=== PATIENT | male | born 1970 | race Caucasian/White ===

== ENCOUNTER 2017-12-15 23:37 | Emergency (ER) | payer OTHER ==
[2017-12-15 23:49] VITALS: BP 131/88; PULSE 72; TEMP 98.1; BMI 30.5
[2017-12-15] MEDS ORDERED: CIPROFLOXACIN 500 MG TABLET (RESTRICTED TO ID) PO ONE (23:56)
[2017-12-15] MEDS ORDERED: predniSONE 20 MG TABLET (UD) PO ONE (23:57)
[2017-12-15] MEDS ORDERED: predniSONE 20 MG TABLET (UD) ONE (23:59)
[2017-12-15] MEDS ORDERED: CIPROFLOXACIN 250 MG TABLET (RESTRICTED TO ID) PO ONE (23:59)
--- NOTE | 2017-12-16 00:01 | PDOC ---
History of Present Illness - General Chief Complaint: Edema Stated Complaint: LIP SWELLING History Source: Patient Exam Limitations: No Limitations - History of Present Illness Initial Comments: 12/15/17 23:57 This is a 47-year-old male comes in complaining of discomfort in his lower lip. Patient was started on Bactrim approximately 7 days ago for prostatitis. Oxylate 3 days ago patient developed some angioedema of his lower lip and now has progressed to some blistering of the skin. Patient otherwise denies any other rash. Patient had initially attributed it to a chicken salad he ate 3 days ago however he said the symptoms are getting progressively worse and not better. Patient otherwise denies any different foods or medications. Patient is otherwise healthy. Patient denies any shortness of breath, chest pain or rashes anywhere else on his body. PAST MEDICAL HISTORY: no significant history PAST SURGICAL HISTORY: no significant history FAMILY HISTORY: no pertinant history SOCIAL HISTORY: Pt lives with family and is employed. MEDICATIONS: reviewed ALLERGIES: As per nursing notes Review of Systems General: No fevers or chills, no weakness, no weight loss HEENT: No change in vision. No sore throat,. No ear pain CardioVascular: No chest pain or shortness of breath Respiratory:No cough, or wheezing. Gastrointestinal: no nausea, vomitting, diarrhea or constipation, No rectal bleeding Genitourinary: No dysuria, hematuria, or frequency Musculoskeletal: No joint or muscle pain or swelling Neurologic: No headache, vertigo, dizziness or loss of consciousness Psychiatric: nor depression Skin: No rashes or easy bruising Endocrine: no increased thirst or abnormal weight change Allergic: no skin or latex allergy All other systems reviewed and normal GENERAL: The patient is awake, alert, and fully oriented, in no acute distress. HEAD: Normal with no signs of trauma. MOUTH: There is some angioedema of the lower lip with associated blistering of the skin. There is no angioedema of the posterior oropharynx or anywhere else. There is no other rashes. CHEST: Lungs are clear there is no wheezing. EYES: Pupils equal, round and reactive to light, extraocular movements intact, sclera anicteric, conjunctiva clear. EXTREMITIES: Normal range of motion, no edema. NEUROLOGICAL: Normal speech, normal gait. grossly intact PSYCH: Normal mood, normal affect. SKIN: Warm, Dry, normal turgor, no rashes or lesions noted. Assessment and plan: This is a 47-year-old male who most likely has a ALLERGIC reaction to the sulfur/Bactrim that he started taking approximately week ago. Patient will be switched to Cipro for the duration of his treatment for his prostatitis and will also be given some prednisone and a Medrol Dosepak. Patient discharged and told to follow-up with his primary care doctor. Patient was also told that he should tell his health care providers that he is ALLERGIC to sulfur and Bactrim. Past History - Past Medical History Allergies/Adverse Reactions: Allergies Allergy/AdvReac Type Severity Reaction Status Date / Time sulfamethoxazole Allergy Verified 12/15/17 23:52 [From Bactrim] trimethoprim [From Bactrim] Allergy Verified 12/15/17 23:52 Home Medications: Ambulatory Orders Sulfamethoxazole/Trimethoprim [Bactrim Ds Tablet] 1 each PO BID 12/15/17 Tamsulosin HCl [Flomax] 0.4 mg PO DAILY 12/15/17 Ciprofloxacin [Cipro -] 500 mg PO Q12H #16 tablet 12/16/17 COPD: No Disorders: Yes (PROSTATE) - Suicide/Smoking/Psychosocial Hx Smoking History: Never smoked *Physical Exam - Vital Signs Last Vital Signs Temp Pulse Resp BP Pulse Ox 98.1 F 72 16 131/88 97 12/15/17 23:46 12/15/17 23:46 12/15/17 23:46 12/15/17 23:46 12/15/17 23:46 *DC/Admit/Observation/Transfer Diagnosis at time of Disposition: in our is getting 1 dose of steroids as I canEdema Allergic reaction to drug Qualifiers: Encounter type: initial encounter Qualified Code(s): T78.40XA - Allergy, unspecified, initial encounter - Discharge Dispostion Disposition: HOME Condition at time of disposition: Stable Admit: No - Prescriptions Prescriptions: Ciprofloxacin [Cipro -] 500 mg PO Q12H #16 tablet - Referrals - Patient Instructions Additional Instructions: Stop taking the antibiotic that you're taking and that make sure you tell you' re healthcare providers you're ALLERGIC to sulfur or Bactrim. Take Cipro 1 tablet twice a day for the next 12 days. Continue the other medications you're on. Return to the emergency department immediately with ANY new, persistent or worsening symptoms. Continue any medications as previously prescribed by your physician. You should follow up with your primary doctor as soon as possible regarding today's emergency department visit. . Please make sure your doctor reviews the results of your emergency evaluation. Thank you for coming to the Emergency Department today for your care. It was a pleasure to see you today. Please note that your evaluation is INCOMPLETE until you follow-up with your doctor. Print Language: MACEDONIAN - Post Discharge Activity
== END 2017-12-16 00:25 | disposition home or self-care (01) ==
LOC: FER 23:37
DX: T78.40XA Allergy, unspecified, initial encounter (principal)
CPT/HCPCS: 99281-25

== ENCOUNTER 2019-06-10 11:00 | Day surgery (SDC) | payer OTHER ==
[2019-06-10 10:30] VITALS: BMI 33.0
[2019-06-10] MEDS ORDERED: MIDAZOLAM HCL 2 MG/2 ML SINGLE DOSE VIAL ONE (11:32)
[2019-06-10 11:52] VITALS: TEMP 98.2
[2019-06-10 12:52] VITALS: BP 112/75; PULSE 66
== END 2019-06-10 12:40 | disposition home or self-care (01) ==
LOC: JASU-ENDO 12:40
PROVIDERS: ATTEND Internal Medicine Gastroenterology
PROC: 0DB68ZX Excision of Stomach, Via Natural or Artificial Opening Endoscopic, Diagnostic (ICD-10-PCS; 2019-06-10)
PROC: 0DB58ZX Excision of Esophagus, Via Natural or Artificial Opening Endoscopic, Diagnostic (ICD-10-PCS; principal; 2019-06-10 11:00)
DX: K21.9 Gastro-esophageal reflux disease without esophagitis (principal)
CPT/HCPCS: 88305-TC; 88342-TC

== ENCOUNTER → 2019-08-19 | Day surgery (SDC) | payer OTHER ==
--- NOTE | 2019-08-21 17:33 | PATH ---
Cytology Non-Gynecological Report Patient Name: AMADEO DIALLO [facility]. Rec. #: [id number] /Age/Gender: 1970 (Age: 48) / M Account: [id number] Location: RADIOLOGY INTER Taken: 08/19/2019 Received: 08/19/2019 Reported: 08/21/2019 Physicians: Lius Enrique Bardley M.D. Specimen(s) Received THYROID FNA RIGHT LOBE Clinical History Right thyroid nodule Final Diagnosis THYROID, RIGHT, FINE NEEDLE ASPIRATION: SATISFACTORY FOR EVALUATION BETHESDA CLASS II: BENIGN SMALL FOLLICULAR CELLS, MACROPHAGES, AND COLLOID PRESENT, CONSISTENT WITH A BENIGN NODULE. Electronically Signed Neto Rosales M.D. Gross Description Received are eight direct smears, four of which are air-dried and Diff-Quik stained, and four of which are alcohol fixed and Pap stained. Also received is 20 ml of bloody formalin from which one cellblock is prepared.
== END | disposition home or self-care (01) ==
LOC: JRADIR 09:27
PROVIDERS: ATTEND Internal Medicine Endocrinology, Diabetes & Metabolism
PROC: 0G9H3ZX Drainage of Right Thyroid Gland Lobe, Percutaneous Approach, Diagnostic (ICD-10-PCS; principal; 2019-08-19)
DX: E04.1 Nontoxic single thyroid nodule (principal)
CPT/HCPCS: 76942; 88173; 88305-TC

== ENCOUNTER 2019-09-29 10:17 | Emergency (ER) | payer OTHER ==
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
[2019-09-29 10:43] VITALS: BP 143/89; PULSE 80; TEMP 98; BMI 33.5
[2019-09-29] MEDS ORDERED: LIDOCAINE 5% TOPICAL PATCH TP ONE (11:12)
[2019-09-29] MEDS ORDERED: KETOROLAC TROMETHAMINE 60 MG/2 ML VIAL IM ONE (11:12)
[2019-09-29] MEDS ORDERED: KETOROLAC TROMETHAMINE 60 MG/2 ML VIAL ONE (11:13)
[2019-09-29] MEDS ORDERED: LIDOCAINE 5% TOPICAL PATCH ONE (11:14)
--- NOTE | 2019-09-29 11:37 | PDOC ---
Attending Attestation - Resident Resident Name: Albert Nunez - HPI HPI: 09/29/19 11:51 Pt presents to the ED complaining of an acute exacerbation of his chronic lower back pain. Patient has a long standing history of chronic pain with two herniated discs. Denies trauma, fever, or neurologic symptoms. Denies bowel or bladder complaints. - Physicial Exam PE: 09/29/19 12:03 Agree with resident exam. PAtient is alert and oriented x 3 and in no acute distress. Back+ band like tenderness over the lumbars spine and paraspinal muscles. No erythema. Ambulatory with normal gait. - Medical Decision Making 09/29/19 12:08 PT presents to the ED complaining of acute exacerbation of his chronic back pain. No signs concerning for epidural abscess or cord compression. No suspicion for fracture. Pain controlled with lidocaine and toradol. Will discharge home with instructions to follow up with his PMD and to return to the ED for worsening symptoms.
[2019-09-29] MEDS ORDERED: LIDOCAINE PATCH REMOVAL MC SCH (22:00)
== END 2019-09-29 11:42 | disposition home or self-care (01) ==
LOC: FER 10:17
PROC: 3E0233Z Introduction of Anti-inflammatory into Muscle, Percutaneous Approach (ICD-10-PCS; principal; 2019-09-29)
DX: M54.5 Low back pain (principal); G89.29 Other chronic pain; I10 Essential (primary) hypertension; K21.9 Gastro-esophageal reflux disease without esophagitis; Z88.1 Allergy status to other antibiotic agents; Z88.2 Allergy status to sulfonamides
CPT/HCPCS: 99282-25

== ENCOUNTER 2020-06-21 23:21 | Emergency (ER) | payer OTHER ==
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
[2020-06-21 23:27] VITALS: BP 149/96; PULSE 117; TEMP 102.6; BMI 33.6
[2020-06-22] MEDS ORDERED: CIPROFLOXACIN 500 MG TABLET (RESTRICTED TO ID) PO ONE (00:36)
[2020-06-22] MEDS ORDERED: ACETAMINOPHEN 500 MG TABLET (FP) PO ONE (00:40)
[2020-06-22] MEDS ORDERED: ACETAMINOPHEN 500 MG TABLET (FP) ONE (00:43)
[2020-06-22] MEDS ORDERED: CIPROFLOXACIN 250 MG TABLET (RESTRICTED TO ID) PO ONE (00:43)
[2020-06-22] MEDS ORDERED: PHENAZOPYRIDINE HCL 100 MG TABLET (FP) PO ONE (00:46)
[2020-06-22] MEDS ORDERED: PHENAZOPYRIDINE HCL 100 MG TABLET (FP) ONE (00:47)
== END 2020-06-22 01:02 | disposition home or self-care (01) ==
LOC: FER 23:21
DX: N30.00 Acute cystitis without hematuria (principal)
CPT/HCPCS: 81003; 81015; 87086; 99284-25

== ENCOUNTER 2022-01-26 04:22 | Day surgery (SDC) | payer OTHER ==
[2022-01-20 15:03] VITALS: BMI 36.8
[2022-01-26 08:46] VITALS: TEMP 97.1
[2022-01-26 09:31] VITALS: BP 118/74; PULSE 60
== END 2022-01-26 09:37 | disposition home or self-care (01) ==
LOC: JASU-ENDO 04:22
PROVIDERS: ATTEND Internal Medicine Gastroenterology
PROC: 0DBK8ZX Excision of Ascending Colon, Via Natural or Artificial Opening Endoscopic, Diagnostic (ICD-10-PCS; 2022-01-26)
PROC: 0DBN8ZX Excision of Sigmoid Colon, Via Natural or Artificial Opening Endoscopic, Diagnostic (ICD-10-PCS; principal; 2022-01-26 08:00)
DX: Z12.11 Encounter for screening for malignant neoplasm of colon (principal); D12.2 Benign neoplasm of ascending colon; D12.7 Benign neoplasm of rectosigmoid junction; K64.8 Other hemorrhoids; Z80.0 Family history of malignant neoplasm of digestive organs
CPT/HCPCS: 88305-TC

== ENCOUNTER 2023-12-04 04:17 | Day surgery (SDC) | payer OTHER ==
[2023-11-22 14:11] VITALS: BMI 31.4
[~2023-12-04 04:17] MED LIST: BACITRACIN ZINC 15 GM TUBE TOPICAL OINTMENT TP ONE; BUPIVACAINE HCL/PF 0.25% (2.5MG/ML) 10 ML VIAL IJ ONE
[2023-12-04] MEDS ORDERED: MIDAZOLAM HCL 2 MG/2 ML SINGLE DOSE VIAL ONE (12:43)
[2023-12-04] MEDS ORDERED: PROPOFOL 20 ML ONE (12:43)
[2023-12-04] MEDS ORDERED: BACITRACIN ZINC 15 GM TUBE TOPICAL OINTMENT ONE (12:53)
[2023-12-04] MEDS ORDERED: BUPIVACAINE HCL/PF 0.25% (2.5MG/ML) 10 ML VIAL ONE (13:15)
[2023-12-04] MEDS ORDERED: ceFAZolin SODIUM 1 GM VIAL ONE (13:37)
[2023-12-04] MEDS ORDERED: ONDANSETRON 4 MG/2 ML VIAL ONE (13:45)
[2023-12-04] MEDS ORDERED: DEXAMETHASONE SOD PHOSPHATE 4 MG/1 ML VIAL ONE (13:45)
[2023-12-04] MEDS ORDERED: BUPIVACAINE HCL/PF 0.25% (2.5MG/ML) 10 ML VIAL IJ ONE (14:03)
[2023-12-04] MEDS ORDERED: BACITRACIN ZINC 15 GM TUBE TOPICAL OINTMENT TP ONE (14:05)
[2023-12-04] MEDS ORDERED: oxyCODONE HCL 5 MG TABLET PO PRN (14:36)
[2023-12-04] MEDS ORDERED: ONDANSETRON 4 MG/2 ML VIAL IVPUSH PRN (14:36)
[2023-12-04] MEDS ORDERED: ACETAMINOPHEN 1000 MG/100 ML BAG IVPB ONE ×2 (14:37→14:39)
[2023-12-04] MEDS ORDERED: LACTATED RINGERS SOLUTION 1,000 ML IV SCH (14:45)
[2023-12-04 15:00] VITALS: RESP 20; TEMP 97.3
[2023-12-04 15:42] VITALS: BP 130/82; PULSE 70
== END 2023-12-04 15:49 | disposition home or self-care (01) ==
LOC: JASU-SURG 04:17
PROVIDERS: ATTEND Urology
PROC: 0VNS0ZZ Release Penis, Open Approach (ICD-10-PCS; 2023-12-04)
PROC: 0VTTXZZ Resection of Prepuce, External Approach (ICD-10-PCS; principal; 2023-12-04 14:00)
DX: N47.1 Phimosis (principal); N47.5 Adhesions of prepuce and glans penis
CPT/HCPCS: 94760

== ENCOUNTER 2024-12-04 18:47 | Emergency (ER) | payer OTHER ==
[2024-12-04 19:40] LABS: HEMATOCRIT 42.6 % (35.4-49); HEMOGLOBIN 14.5 G/dL (11.7-16.9); MCHC 34.1 g/dl (32.0-35.9); MEAN CELL VOLUME 93.9 fl (80-96); MEAN PLT VOLUME 8.8 fl (7.5-11.1); PLATELET COUNT 202.4 10^3/uL (134-434); RBC 4.54 10^6/uL (4.00-5.60); RDW 13.6 % (11.9-15.9); WHITE BLOOD COUNT 7.5 10^3/uL (4.0-10.8)
[2024-12-04 19:55] LABS: ALBUMIN 3.6 g/dl (3.4-5.0); ALK PHOS 54 U/L (45-117); ANION GAP 11 mmol/L (4-13); BILIRUBIN,TOTAL 0.4 mg/dl (0.2-1); CALCIUM 8.8 mg/dl (8.5-10.1); CHLORIDE 105 mmol/L (98-107); CO2 23 mmol/L (21-32); CREATININE 1.5 mg/dl (0.6-1.3); GLUCOSE,RANDOM 111 mg/dl (74-106); POTASSIUM 3.9 mmol/L (3.5-5.1); SGOT/AST 26 U/L (15-37); SGPT/ALT 27 U/L (7-52); SODIUM 139 mmol/L (136-145); TOT PROT 6.1 g/dl (6.4-8.2)
[2024-12-04 20:01] LABS: PLATELET ESTIMATE ADEQUATE
[2024-12-04 20:01] LABS: INR 0.99 (0.83-1.09); PROTHROMBIN TIME (PATIENT) 11.3 SEC (9.7-13.0)
[2024-12-04 21:19] LABS: HIV INTERPRETATION NEGATIVE (NEGATIVE)
[2024-12-04] MEDS ORDERED: predniSONE 20 MG TABLET (UD) ONE (23:27)
[2024-12-04] MEDS ORDERED: ACETAMINOPHEN 325 MG TABLET (FP) PO PRN (23:28)
[2024-12-04] MEDS ORDERED: DOCUSATE SODIUM 100 MG CAPSULE (FP) PO PRN (23:28)
[2024-12-04] MEDS: predniSONE 20 MG TABLET (UD) PO ONE (23:30)
[2024-12-05 01:13] VITALS: RESP 18
[2024-12-05 01:34] VITALS: BMI 33.4
[2024-12-05 07:43] LABS: HEMATOCRIT 41.4 % (35.4-49); HEMOGLOBIN 13.6 G/dL (11.7-16.9); MCH 30.8 pg (25.7-33.7); MCHC 32.9 g/dl (32.0-35.9); MEAN CELL VOLUME 93.5 fl (80-96); PLATELET COUNT 179.8 10^3/uL (134-434); RBC 4.43 10^6/uL (4.00-5.60); RDW 13.2 % (11.9-15.9); WHITE BLOOD COUNT 5.9 10^3/uL (4.0-10.8)
[2024-12-05 08:58] LABS: CALCIUM 8.8 mg/dl (8.5-10.1); CREATININE 0.9 mg/dl (0.6-1.3); POTASSIUM 3.9 mmol/L (3.5-5.1)
[2024-12-05] MEDS: LOSARTAN POTASSIUM 50 MG TABLET PO SCH (09:32)
[2024-12-05] MEDS: HYDROCHLOROTHIAZIDE 12.5 MG CAPSULE (FP) PO SCH (09:32)
[2024-12-05] MEDS: ATORVASTATIN CA 80 MG TABLET (FP) PO ONE (09:39)
[2024-12-05] MEDS: ASPIRIN 81 MG CHEWABLE TABLETS PO SCH (09:39)
[2024-12-05] MEDS: PANTOPRAZOLE 40 MG TABLET PO SCH (12:16)
[2024-12-05] MEDS ORDERED: predniSONE 20 MG TABLET (UD) PO SCH (14:00)
[2024-12-05] MEDS: predniSONE 20 MG TABLET (UD) PO ONE (20:09)
[2024-12-06] MEDS: MELATONIN 5 MG TABLETS PO ONE (00:16)
[2024-12-06] MEDS ORDERED: ACETAMINOPHEN 325 MG TABLET (FP) PO PRN (07:25)
[2024-12-06 08:24] LABS: HEMATOCRIT 40.6 % (35.4-49); HEMOGLOBIN 13.9 G/dL (11.7-16.9); MCH 32.1 pg (25.7-33.7); MCHC 34.1 g/dl (32.0-35.9); MEAN CELL VOLUME 94.1 fl (80-96); MEAN PLT VOLUME 9.5 fl (7.5-11.1); PLATELET COUNT 191.2 10^3/uL (134-434); RBC 4.31 10^6/uL (4.00-5.60); RDW 13.6 % (11.9-15.9); WHITE BLOOD COUNT 7.7 10^3/uL (4.0-10.8)
[2024-12-06 08:47] LABS: CALCIUM 8.6 mg/dl (8.5-10.1); CREATININE 0.9 mg/dl (0.6-1.3); MAGNESIUM 2.2 mg/dL (1.8-2.4); PHOSPHOROUS 5.5 (2.5-4.9); POTASSIUM 4.2 mmol/L (3.5-5.1)
[2024-12-06 09:05] VITALS: BP 112/75; PULSE 87; TEMP 98.8
== END 2024-12-06 12:40 | disposition home or self-care (01) ==
LOC: FER 18:47 → FM/S 22:52 → UNDOADMOB 23:32
PROVIDERS: ADMIT Internal Medicine; ATTEND Internal Medicine
DX: G51.0 Bell's palsy (principal); R26.9 Unspecified abnormalities of gait and mobility; R42 Dizziness and giddiness; J10.1 Influenza due to other identified influenza virus with other respiratory manifestations; Z20.822 Contact with and (suspected) exposure to COVID-19
CPT/HCPCS: 0241U-QW; 36415; 70450-TC; 70544-TC; 70547-TC; 70551-TC; 71045-TC-FY; 80048; 80053; 80061; 82607; 82746; 83036; 83735; 84100; 84484; 85025; 85027; 85610; 86803; 87389; 93005; 93306-TC; 97116-GP; 97162-GP; 99285-25; G0378

== ENCOUNTER 2025-02-17 10:03 | Emergency (ER) | payer OTHER ==
[2025-02-17 10:14] VITALS: BP 114/77; RESP 18; TEMP 98.1; BMI 32.3
[2025-02-17] MEDS ORDERED: KETOROLAC TROMETHAMINE 30 MG/1 ML VIAL ONE (10:30)
[2025-02-17] MEDS: KETOROLAC TROMETHAMINE 30 MG/1 ML VIAL IM ONE (10:38)
[2025-02-17] MEDS ORDERED: ACETAMINOPHEN 500 MG TABLET (FP) ONE (11:32)
[2025-02-17] MEDS ORDERED: LIDOCAINE 5% TOPICAL PATCH ONE (11:32)
[2025-02-17] MEDS: LIDOCAINE 5% TOPICAL PATCH TP ONE (11:35)
[2025-02-17] MEDS: ACETAMINOPHEN 500 MG TABLET (FP) PO ONE (11:35)
[2025-02-17 13:03] VITALS: PULSE 80
[2025-02-17] MEDS ORDERED: LIDOCAINE PATCH REMOVAL MC ONE (22:00)
== END 2025-02-17 13:03 | disposition home or self-care (01) ==
LOC: FER 10:03
PROC: 3E0233Z Introduction of Anti-inflammatory into Muscle, Percutaneous Approach (ICD-10-PCS; principal; 2025-02-17)
DX: M54.41 Lumbago with sciatica, right side (principal); M25.551 Pain in right hip; K59.00 Constipation, unspecified; R00.0 Tachycardia, unspecified; R26.2 Difficulty in walking, not elsewhere classified
CPT/HCPCS: 81003; 81015; 87086; 96372; 99284-25

== ENCOUNTER 2025-05-05 17:49 | Emergency (ER) | payer OTHER ==
[2025-05-05 18:12] VITALS: BP 120/79; PULSE 84; RESP 18; TEMP 98.6; BMI 31.3
[2025-05-05 18:47] LABS: BASOPHILS # 0.02 x10^3/uL (0.01-0.08); EOSINOPHIL % 0.3 % (0.8-7.0); EOSINOPHILS # 0.02 x10^3/uL (0.04-0.54); HEMATOCRIT 41.7 % (40.1-51.0); MCHC 33.6 g/dl (32.3-36.5); MEAN CELL VOLUME 93.1 fl (79.0-92.2); MEAN PLT VOLUME 10.2 fl (9.4-12.4); MONOCYTE # 0.49 x10^3/uL (0.30-0.82); MONOCYTE % 7.9 % (5.3-12.2); PLATELET COUNT 184 x10^3/uL (163-337); RDW 13.2 % (12.2-16.1)
[2025-05-05 19:09] LABS: ALBUMIN 3.8 g/dl (3.4-5.0); BILIRUBIN,TOTAL 0.5 mg/dl (0.2-1); CALCIUM 8.6 mg/dl (8.5-10.1); POTASSIUM 3.7 mmol/L (3.5-5.1); TOT PROT 6.7 g/dl (6.4-8.2)
[2025-05-05 19:12] LABS: INR 0.94 (0.83-1.09); PROTHROMBIN TIME (PATIENT) 10.4 SEC (9.7-13.0)
[2025-05-05 19:14] LABS: ACTIVATED PTT 26.3 SECONDS (25.2-36.5)
[2025-05-05 20:32] LABS: VENOUS BASE EXCESS 1.7 mmol/L (-2-2); VENOUS O2 SATURATION 43.7 % (70-80); VENOUS PCO2 47.3 mmHg (38-52); VENOUS PH 7.386 (7.310-7.410)
[2025-05-05 21:28] LABS: HIV INTERPRETATION NEGATIVE (NEGATIVE)
[2025-05-05 21:29] LABS: HCV DIAGNOSTIC IN-HOUSE W/RFLX NON-REACTIVE (NONREACTIVE)
== END 2025-05-05 21:38 | disposition home or self-care (01) ==
LOC: FER 17:49
DX: K52.9 Noninfective gastroenteritis and colitis, unspecified (principal); R10.31 Right lower quadrant pain; R10.32 Left lower quadrant pain; R19.5 Other fecal abnormalities
CPT/HCPCS: 36415; 74177-TC; 80053; 81003; 81015; 82272; 82803; 83690; 85025; 85610; 85730; 86803; 86850; 86900; 86901; 87086; 87389; 99285-25; Q9967